=== PATIENT | male | born 1945 | race Caucasian/White ===

== ENCOUNTER 2024-08-15 05:50 | Day surgery (SDC) | payer MEDICARE, BC ==
[2024-08-11 14:53] LABS: BASOPHILS % (AUTO) 0.4 % (0-1); EOSINOPHILS # (AUTO) 0.1 X10'3 (0-0.9); EOSINOPHILS % (AUTO) 1.8 % (0-6); LYMPHOCYTES # (AUTO) 2.2 X10'3 (1.1-4.8); LYMPHOCYTES % (AUTO) 34.6 % (21-51); MEAN CORPUSCULAR HEMOGLOBIN 33.2 PG (27.0-31.0); MEAN CORPUSCULAR VOLUME 100.7 FL (78-98); MEAN PLATELET VOLUME 7.4 FL (7.4-10.4); MONOCYTES # (AUTO) 0.7 X10'3 (0-0.9); MONOCYTES % (AUTO) 11.5 % (2-12); NEUTROPHILS # (AUTO) 3.2 X10'3 (1.8-7.7); NEUTROPHILS % (AUTO) 51.7 % (42-75); PRE OP HEMATOCRIT 37.2 % (42.0-52.0); PRE OP HEMOGLOBIN 12.3 g/dL (14.0-17.9); PRE OP PLATELET COUNT 128 X10'3 (140-440); PRE OP WHITE BLOOD COUNT 6.2 10'3 (4.8-10.8); RED CELL DISTRIBUTION WIDTH 14.7 % (11.5-14.5)
[2024-08-11 15:21] LABS: ALBUMIN 3.8 G/DL (3.4-5.0); ALKALINE PHOSPHATASE 107 IU/L (46-116); BLOOD UREA NITROGEN 37 MG/DL (7-18); BUN/CREATININE RATIO 26.1 (10.0-20.0); CHLORIDE 103 MMOL/L (99-107); CREATININE 1.42 MG/DL (0.60-1.10); PRE OP ALT 32 U/L (30-65); PRE OP ANION GAP 10 (8-16); PRE OP AST 23 U/L (10-37); PRE OP BILIRUB, TOTAL 0.7 MG/DL (0.0-1.0); PRE OP GLUCOSE 140 MG/DL (70-104); PRE OP POTASSIUM 4.5 MMOL/L (3.4-5.1); PRE OP SODIUM 137 MMOL/L (135-145); TOTAL CARBON DIOXIDE 23.8 MMOL/L (24-32); TOTAL PROTEIN 7.8 G/DL (6.4-8.2); eGFR 48 ML/MIN
[~2024-08-15] VITALS: Ht 182.9 cm; Wt 82.9 kg
[2024-08-15] VITALS (8 sets, daily range): BP systolic 114–139; BP diastolic 59–75; PULSE 57–70; RESP 12–18; TEMP 98.1; O2SAT 95–98
[~2024-08-15 05:50] MED LIST: ALLO100T25 PO; APIX5TAB3 PO; ATOR40TA PO; CARV25TA5 PO; CHOL500061 PO; CYAN-34 PO; DIGO125T PO; DOCUMENT DATE & TIME OF BETA-BLOCKER PO ONE; EMPA10TA PO; EPLE25TA PO; EZET10TA7 PO; FERR-39 PO; INSU100V12 SQ; LEVO125C4 PO; MAGN400C PO; METF-1203 PO; SACU1TAB7 PO; [UNRECOGNIZED DRUG - CODE] PO
[2024-08-15] MEDS: famotidine 20mg tablet PO ONE (06:22)
[2024-08-15] MEDS: ringers solution, lacted 1,000 ML IV SCH (06:23)
[2024-08-15] MEDS: cefazolin 2gm/D5W 100mL 100 ML IV ONE (06:23)
[2024-08-15] MEDS ORDERED: LIDOcaine 2% (20mg/ml) 5ml vial ONE (07:00)
[2024-08-15] MEDS ORDERED: BUPIVAcaine/PF 2.5mg/ml (0.25%) 10ml vial ONE (07:48)
[2024-08-15] MEDS ORDERED: midazolam 1 mg/ML 2ml injection ONE (08:12)
[2024-08-15] MEDS ORDERED: ondansetron/PF 4mg/2ml inj IV PRN (08:20)
[2024-08-15] MEDS ORDERED: proCHLORperazine 10 MG/2 ml inj IV PRN (08:20)
[2024-08-15] MEDS ORDERED: ringers solution, lacted 1,000 ML IV SCH (08:20)
[2024-08-15] MEDS ORDERED: meperidine/PF 25mg/ml syringe IV PRN ×3 (08:20)
[2024-08-15] MEDS ORDERED: propofol inj 20 ML IV ONE (08:43)
[2024-08-15] MEDS: BUPIVAcaine/PF 2.5mg/ml (0.25%) 10ml vial ONE (12:43)
== END 2024-08-15 09:14 | disposition home or self-care (01) ==
LOC: PAS 05:50
PROVIDERS: ATTEND Orthopaedic Surgery Hand Surgery
DX: G56.02 Carpal tunnel syndrome, left upper limb (principal); I25.10 Atherosclerotic heart disease of native coronary artery without angina pectoris; I12.9 Hypertensive chronic kidney disease with stage 1 through stage 4 chronic kidney disease, or unspecified chronic kidney disease; E11.22 Type 2 diabetes mellitus with diabetic chronic kidney disease; N18.30 Chronic kidney disease, stage 3 unspecified; E03.9 Hypothyroidism, unspecified; Z87.891 Personal history of nicotine dependence; Z86.73 Personal history of transient ischemic attack (TIA), and cerebral infarction without residual deficits; Z79.01 Long term (current) use of anticoagulants; Z79.84 Long term (current) use of oral hypoglycemic drugs; Z79.890 Hormone replacement therapy; Z79.899 Other long term (current) drug therapy; Z95.1 Presence of aortocoronary bypass graft; Z95.810 Presence of automatic (implantable) cardiac defibrillator; Z96.653 Presence of artificial knee joint, bilateral; Z96.669 Presence of unspecified artificial ankle joint; Z88.5 Allergy status to narcotic agent; Z88.8 Allergy status to other drugs, medicaments and biological substances
CPT/HCPCS: 36415; 64721; 80053; 82948; 85025; 93005; A4215; A6449; J0690; J2001; J2250; J2704; J3490; J7030; J7120; Z7506; Z7512; Z7610